=== PATIENT | female | born 1945 | race Hispanic/Latino ===

== ENCOUNTER 2019-07-25 18:16 | Emergency (ER) | payer OTHER ==
--- NOTE | 2019-07-25 19:02 | EDPHYS ---
Physician Documentation [facility] Name: Kimberlyn Rodriguez Age: 74 yrs Sex: Female : 1945 Arrival Date: 07/25/2019 Time: 18:18 Bed 6 Private MD: ED Physician Oneil Trejo HPI: 07/25 18:58 This 74 yrs old Female presents to ER via Wheelchair with complaints of ma2 Neck,Back \T\ Foot Pain. 18:58 The patient presents with vertigo. Onset: The symptoms/episode began/occurred ma2 gradually, 2 year(s) ago. Associated signs and symptoms: Pertinent negatives: blurred vision, combativeness, focal weakness. Severity of symptoms: At their worst the symptoms were very mild in the emergency department the symptoms are unchanged. The patient has experienced similar episodes in the past. has vertigo for years, just moved from [place] and states that she want to establish care and will f/u with pcp, symptoms are stable for years unchanged, needs refill, no new symptoms . Historical: - Allergies: 18:31 No Known Allergies; mg2 - Home Meds: 18:31 amlodipine oral [Active]; Aspirin Oral [Active]; Zofran Oral [Active]; levothyroxine mg2 oral [Active]; allopurinol Oral [Active]; - PMHx: 18:31 Hypertension; Gout; Hypothyroidism; Depression; mg2 - PSHx: 18:31 Carpal Tunnel Repair; mg2 - Immunization history:: Flu vaccine status is unknown. - Social history:: Smoking status: unknown Patient/guardian denies using alcohol, street drugs, The patient lives with family. - Ebola Screening: : No symptoms or risks identified at this time. - Family history:: not pertinent. ROS: 18:58 Constitutional: Negative for fever, chills, and weight loss. ma2 18:58 All other systems are negative. Exam: 18:58 Constitutional: This is a well developed, well nourished patient who is awake, alert, ma2 and in no acute distress. Head/Face: Normocephalic, atraumatic. Eyes: Pupils equal round and reactive to light, extra-ocular motions intact. Lids and lashes normal. Conjunctiva and sclera are non-icteric and not injected. Cornea within normal limits. Periorbital areas with no swelling, redness, or edema. ENT: Nares patent. No nasal discharge, no septal abnormalities noted. Tympanic membranes are normal and external auditory canals are clear. Oropharynx with no redness, swelling, or masses, exudates, or evidence of obstruction, uvula midline. Mucous membranes moist. Neck: Trachea midline, no thyromegaly or masses palpated, and no cervical lymphadenopathy. Supple, full range of motion without nuchal rigidity, or vertebral point tenderness. No Meningismus. Chest/axilla: Normal chest wall appearance and motion. Nontender with no deformity. No lesions are appreciated. Cardiovascular: Regular rate and rhythm with a normal S1 and S2. No gallops, murmurs, or rubs. Normal PMI, no JVD. No pulse deficits. Respiratory: Lungs have equal breath sounds bilaterally, clear to auscultation and percussion. No rales, rhonchi or wheezes noted. No increased work of breathing, no retractions or nasal flaring. Abdomen/GI: Soft, non-tender, with normal bowel sounds. No distension or tympany. No guarding or rebound. No evidence of tenderness throughout. MS/ Extremity: Pulses equal, no cyanosis. Neurovascular intact. Full, normal range of motion. Neuro: Awake and alert, GCS 15, oriented to person, place, time, and situation. Cranial nerves II-XII grossly intact. Motor strength 5/5 in all extremities. Sensory grossly intact. Cerebellar exam normal. Normal gait. Vital Signs: 18:28 BP 129 / 62; Pulse 60; Resp 18; Temp 97.8; Pulse Ox 99% on R/A; Weight 72.57 kg; Height mg2 5 ft. 3 in. (160.02 cm); 18:28 Body Mass Index 28.34 (72.57 kg, 160.02 cm) mg2 MDM: 18:32 Patient medically screened. ma2 18:58 Differential diagnosis: hypovolemia, near-syncope, vertigo. Data reviewed: vital signs, ma2 nurses notes. Counseling: I had a detailed discussion with the patient and/or guardian regarding: the historical points, exam findings, and any diagnostic results supporting the discharge/admit diagnosis, the presence of at least one elevated blood pressure reading (>120/80) during this emergency department visit, the need for outpatient follow up. Response to treatment: the patient's symptoms have markedly improved after treatment. Administered Medications: No medications were administered Disposition: 07/25/19 19:01 Discharged to Home. Impression: Benign paroxysmal vertigo, bilateral. - Condition is Stable. - Discharge Instructions: Vertigo. - Prescriptions for Meclizine 25 mg Oral Tablet - take 1 tablet by ORAL route every 8 hours As needed; 30 tablet. Tylenol- Codeine #3 300-30 mg Oral Tablet - take 2 tablet by ORAL route every 6 hours As needed; 30 tablet. - Medication Reconciliation Form, Thank You Letter, Antibiotic Education, Prescription Opioid Use form. - Follow up: Jaime Hickman MD; When: Tomorrow; Reason: Continuance of care. Follow up: Laura Richards MD; When: Today; Reason: Continuance of care. Signatures: Tucker Melendez RN RN jb4 Oneil Trejo MD MD ma2 Winston Lockett RN RN mg2 Corrections: (The following items were deleted from the chart) 19:17 19:01 07/25/2019 19:01 Discharged to Home. Impression: Benign paroxysmal vertigo, jb4 bilateral. Condition is Stable. Forms are Medication Reconciliation Form, Thank You Letter, Antibiotic Education, Prescription Opioid Use. Follow up: Jaime Hickman; When: Tomorrow; Reason: Continuance of care. Follow up: Laura Richards; When: Today; Reason: Continuance of care. ma2
--- NOTE | 2019-07-25 19:02 | ER ---
Nurse's Notes [facility] Name: Kimberlyn Rodriguez Age: 74 yrs Sex: Female : 1945 Arrival Date: 07/25/2019 Time: 18:18 Bed 6 Private MD: Diagnosis: Benign paroxysmal vertigo, bilateral Presentation: 07/25 18:26 Presenting complaint: Patient states: i just moved here from [place] and i have back mg2 neck and foot pain which has been going on for months now. i had history of multiple fall because of dizziness and ear problem. Transition of care: patient was not received from another setting of care. Onset of symptoms was June 2019. Risk Assessment: Do you want to hurt yourself or someone else? Patient reports no desire to harm self or others. Initial Sepsis Screen: Does the patient meet any 2 criteria? No. Patient's initial sepsis screen is negative. Does the patient have a suspected source of infection? No. Patient's initial sepsis screen is negative. Care prior to arrival: None. 18:26 Method Of Arrival: Wheelchair mg2 18:26 Acuity: JESSIKA 4 mg2 Historical: - Allergies: 18:31 No Known Allergies; mg2 - Home Meds: 18:31 amlodipine oral [Active]; Aspirin Oral [Active]; Zofran Oral [Active]; levothyroxine mg2 oral [Active]; allopurinol Oral [Active]; - PMHx: 18:31 Hypertension; Gout; Hypothyroidism; Depression; mg2 - PSHx: 18:31 Carpal Tunnel Repair; mg2 - Immunization history:: Flu vaccine status is unknown. - Social history:: Smoking status: unknown Patient/guardian denies using alcohol, street drugs, The patient lives with family. - Ebola Screening: : No symptoms or risks identified at this time. - Family history:: not pertinent. Screenin:00 Abuse screen: Denies threats or abuse. Nutritional screening: No deficits noted. jb4 Tuberculosis screening: No symptoms or risk factors identified. Fall Risk Ambulatory Aid- Crutches/Cane/Walker (15 pts). Gait- Impaired (20 pts.). Total Meehan Fall Scale indicates Low Risk Score (25-44 pts). Fall prevention measures have been instituted. Side Rails Up X 2 Placed close to Nursing Station Frequent Obs/Assesments occuring Family Present and informed to notify staff if they need to leave bedside As available Patient and Family Educated on Fall Prevention Program and strategies. Assessment: 19:00 General: Appears in no apparent distress. uncomfortable, Behavior is calm, cooperative, jb4 appropriate for age. Pain: Complains of pain in back and neck Pain does not radiate. Pain currently is 8 out of 10 on a pain scale. Neuro: Level of Consciousness is awake, alert, obeys commands, Oriented to person, place, time, situation. Cardiovascular: Patient's skin is warm and dry. Respiratory: Airway is patent Respiratory effort is even, unlabored, Respiratory pattern is regular, symmetrical. GI: No signs and/or symptoms were reported involving the gastrointestinal system. : No signs and/or symptoms were reported regarding the genitourinary system. EENT: No signs and/or symptoms were reported regarding the EENT system. Derm: Skin is intact, Skin is pink, warm \T\ dry. Musculoskeletal: Circulation, motion, and sensation intact. Range of motion: intact in all extremities. Vital Signs: 18:28 BP 129 / 62; Pulse 60; Resp 18; Temp 97.8; Pulse Ox 99% on R/A; Weight 72.57 kg; Height mg2 5 ft. 3 in. (160.02 cm); 18:28 Body Mass Index 28.34 (72.57 kg, 160.02 cm) mg2 ED Course: 18:18 Patient arrived in ED. ds1 18:28 Triage completed. mg2 18:28 Arm band placed on. mg2 18:32 Oneil Trejo MD is Attending Physician. ma2 19:00 Jaime Hickman MD is Referral Physician. ma2 19:00 Laura Richards MD is Referral Physician. ma2 19:00 Patient has correct armband on for positive identification. Placed in gown. Bed in low jb4 position. Call light in reach. Side rails up X 1. 19:17 No provider procedures requiring assistance completed. Patient did not have IV access jb4 during this emergency room visit. Administered Medications: No medications were administered Outcome: 19:01 Discharge ordered by . ma2 19:17 Discharged to home via wheelchair, with family. jb4 19:17 Condition: stable 19:17 Discharge instructions given to patient, family, Instructed on discharge instructions, follow up and referral plans. medication usage, Demonstrated understanding of instructions, follow-up care, medications. 19:17 Patient left the ED. jb4 Signatures: Aracely Chavez ds1 Tucker Melendez, RN RN jb4 Oneil Trejo MD MD ma2 Winston Lockett RN RN mg2
[2019-07-25 22:58] VITALS: BP 129/62; TEMP 97.8; O2SAT 99
== END 2019-07-25 19:17 | disposition home or self-care (01) ==
LOC: ER 18:16
DX: H81.13 Benign paroxysmal vertigo, bilateral (principal); I10 Essential (primary) hypertension; E03.9 Hypothyroidism, unspecified; F32.9 Major depressive disorder, single episode, unspecified; Z79.82 Long term (current) use of aspirin
CPT/HCPCS: 99281